=== PATIENT | male | born 1960 | race Caucasian/White ===

== ENCOUNTER → 2021-01-17 | Outpatient (CLI) | payer OTHER ==
--- NOTE | 2021-01-17 13:12 | RAD ---
EXAM: XR HAND 2 VIEWS, XR WRIST 2 VIEWS 01/17/2021 8:44 AM CLINICAL INDICATION: Pain, arthritis bilateral wrists. COMPARISON: None TECHNIQUE: 2 views of the right left wrist. 2 views of the right left hand FINDINGS: Left wrist: No acute fracture. Alignment is normal. Joint spaces are maintained. No erosions. Bone mi neralization is normal. Soft tissues normal. Right wrist: No acute fracture. Alignment is normal. Joint spaces are maintained. Bone mineralization is normal. Soft tissues normal. Left hand: No acute fracture. Alignment is normal. There is severe joint space narrowing of the secon d through fifth interphalangeal joints with large osteophytes, greatest at the third DIP joint. There may be some central erosions, for example at the second, third, and fifth DIP joint. Milder joint sp phil narrowing at the thumb IP joint. Mild joint space narrowing with small subchondral cysts at the t hird MCP joint. No erosions. Bone mineralization and soft tissue are normal. Right hand: No acute fracture. There is ulnar deviation at the second and third proximal interphalang eal joints. There is severe joint space narrowing of the second through fifth interphalangeal joints with large osteophytes. This is greatest at the second and third PIP joints where there may be centra l erosions. Moderate joint space narrowing with small osteophytes and subchondral sclerosis of the th umb IP joint. Bone mineralization is normal. There is periarticular soft tissue swelling in the finge rs. IMPRESSION: 1. 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 2. No evidence of arthritis in the wrists. Electronically signed by: Apoorva Fisher MD (01/17/2021 1:10 PM) [id number]
== END ==
LOC: RAD 08:34
PROVIDERS: ATTEND Anesthesiology Pain Medicine
DX: M19.041 Primary osteoarthritis, right hand (principal); M19.042 Primary osteoarthritis, left hand; M25.742 Osteophyte, left hand; M25.741 Osteophyte, right hand; M25.842 Other specified joint disorders, left hand; M25.531 Pain in right wrist; M25.532 Pain in left wrist
CPT/HCPCS: 73100-50; 73120-50